=== PATIENT | male | born 1990 | race Caucasian/White ===

== ENCOUNTER 2016-08-27 03:55 | Emergency (ER) | payer SELFPAY ==
[~2016-08-27] VITALS: Ht 177.8 cm; Wt 77.9 kg
[2016-08-27 03:55] VITALS: TEMP 36.7; O2SAT 94; Ht 177.8 cm; Wt 77.9 kg
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
[2016-08-27 04:44] LABS: BUN/CREATININE RATIO 14.4 (10-20); CALCIUM 8.4 mg/dl (8.5-10.1); CREATININE 1.3 mg/dl (0.60-1.40); POTASSIUM 3.9 mmol/L (3.5-5.1)
[2016-08-27 05:40] VITALS: PULSE 98; O2SAT 95
[2016-08-27 06:00] VITALS: BP 172/55
== END 2016-08-27 06:07 | disposition home or self-care (01) ==
LOC: C.EDB 04:00
DX: T51.0X1A Toxic effect of ethanol, accidental (unintentional), initial encounter (principal); S60.221A Contusion of right hand, initial encounter; Y90.7 Blood alcohol level of 200-239 mg/100 ml; X58.XXXA Exposure to other specified factors, initial encounter